=== PATIENT | female | born 2005 | race African-American/Black ===

== ENCOUNTER 2023-12-23 16:49 | Emergency (ER) | payer SELFPAY ==
[2023-12-23] MEDS ORDERED: Ibuprofen 200 MG TAB ONE (17:50)
== END 2023-12-23 18:40 | disposition home or self-care (01) ==
LOC: CSHERS 16:49
DX: R51.9 Headache, unspecified (principal); F17.290 Nicotine dependence, other tobacco product, uncomplicated
CPT/HCPCS: 99283

== ENCOUNTER 2024-02-13 14:11 | Emergency (ER) | payer SELFPAY ==
[2024-02-13 15:24] LABS: Bilirubin Neg (Negative); Blood, Urine Negative (Negative); Clarity Clear (Clear); Glucose, Urine (Dipstick) Normal (Negative); Ketone, Urine Negative (Negative); Leukocyte 100 (Negative); Nitrite Negative (Negative); Protein, Urine (Dipstick) 15 mg/dl (Neg-Trace); Specific Gravity, Urine 1.025 (1.005-1.030); Urobilinogen Normal mg/dL (Less than 2)
[2024-02-13] MEDS ORDERED: Ondansetron ODT 4 MG TAB ONE (15:30)
[2024-02-13] MEDS ORDERED: Acetaminophen 500 MG TAB ONE (15:30)
[2024-02-13 15:41] LABS: Pregnancy Test - Urine (BHCG) POSITIVE (Negative); Pregu Control Background? CLEAR/WHITE (CLR/WHITE); Pregu Control Bar Appear? YES (CONTROL BAR); Specific Gravity 1.025 (1.002-1.036)
[2024-02-13 15:52] LABS: Bacteria/HPF 1+ HPF (None Seen); CAUTI Indications for Culture Pelvic or flank pain; RBC/HPF 0-3 HPF (0-3); Squamous Epithelial 0-3 HPF (0-3); Trichomonas/HPF Rare HPF (None Seen)
[2024-02-13 15:53] LABS: Mucous/LPF 1+ LPF (<2+)
[2024-02-13 15:54] LABS: Urine Culture Reflex No No
== END 2024-02-13 16:26 | disposition home or self-care (01) ==
LOC: CSHERS 14:11
DX: O23.41 Unspecified infection of urinary tract in pregnancy, first trimester (principal); O99.332 Smoking (tobacco) complicating pregnancy, second trimester; N39.0 Urinary tract infection, site not specified; A59.9 Trichomoniasis, unspecified; F17.290 Nicotine dependence, other tobacco product, uncomplicated
CPT/HCPCS: 81001; 81025; 99284; Q0162